=== PATIENT | male | born 1990 | race Caucasian/White ===

== ENCOUNTER 2020-07-14 11:30 | Emergency (ER) | payer OTHER ==
[~2020-07-14] VITALS: Ht 170.2 cm; Wt 76.4 kg
[2020-07-14 11:31] VITALS: BP 124/80
--- NOTE | 2020-07-14 12:12 | REP ---
INDICATION: pain COMPARISON: None. TECHNIQUE: Three views right shoulder. FINDINGS: There is no evidence of acute fracture, dislocation, or intrinsic bone disease.Joint spaces are unremarkable. IMPRESSION: No fracture or dislocation. <Electronically signed by Kaz Forrester > 07/14/20 [id number]
== END 2020-07-14 12:35 | disposition home or self-care (01) ==
LOC: M ED 11:30
DX: M25.511 Pain in right shoulder (principal); X50.0XXA Overexertion from strenuous movement or load, initial encounter; Y92.9 Unspecified place or not applicable; Y99.1 Military activity